=== PATIENT | female | born 1985 | race Caucasian/White ===

== ENCOUNTER 2019-11-12 13:59 | Outpatient (CLI) | payer MEDICAID, OTHER ==
[~2019-11-12 13:59] MED LIST: ACYC-113 PO; [UNRECOGNIZED DRUG - REMARK] PO
== END 2019-11-12 23:59 | disposition home or self-care (01) ==
LOC: STAR 13:59
PROVIDERS: ATTEND Otolaryngology
DX: Z02.9 Encounter for administrative examinations, unspecified (principal)

== ENCOUNTER → 2019-11-15 | Outpatient (CLI) | payer OTHER | END | disposition home or self-care (01) | LOC: LAB 10:02 | PROVIDERS: ATTEND Anesthesiology | DX: Z01.812 Encounter for preprocedural laboratory examination (principal); Z20.828 Contact with and (suspected) exposure to other viral communicable diseases | CPT/HCPCS: 36415; 87635 ==

== ENCOUNTER 2019-11-20 05:43 | Observation (INO) | payer OTHER ==
[~2019-11-20] VITALS: Ht 167.6 cm; Wt 108.2 kg
[2019-11-20] MEDS ORDERED: LACTATED RINGERS 1,000 ML IV SCH ×2 (06:20→12:00)
[2019-11-20] MEDS ORDERED: CHLORHEXIDINE 15 ML UDC MM ONE (06:30)
[2019-11-20 06:48] LABS: HCG UR SG 1.024 (1.003-1.030)
[2019-11-20] MEDS ORDERED: LIDOCAINE 1%-EPI 1:100K, 20ML ONE (07:11)
[2019-11-20] MEDS ORDERED: NEOSPORIN OINT, 15GM ONE (07:11)
[2019-11-20] MEDS ORDERED: OXYMETAZOLINE NASAL SPRAY 0.05%, 15ML ONE (07:11)
[2019-11-20] MEDS ORDERED: CEFAZOLIN 1,000 MG ONE (07:23)
[2019-11-20] MEDS ORDERED: ONDANSETRON 2MG/ML, 2ML ONE ×2 (07:23→09:49)
[2019-11-20] MEDS ORDERED: LABETALOL 5MG/ML, 20ML ONE ×2 (07:23→09:10)
[2019-11-20] MEDS ORDERED: DEXAMETHASONE 4 MG/ML, 5ML ONE (07:23)
[2019-11-20] MEDS ORDERED: ROCURONIUM 10 MG/ML,10ML ONE (07:23)
[2019-11-20] MEDS ORDERED: PROPOFOL 10 MG/ML, 20ML ONE (07:23)
[2019-11-20] MEDS ORDERED: MIDAZOLAM 1 MG/ML, 2ML ONE (07:24)
[2019-11-20] MEDS ORDERED: FENTANYL PF 100 MCG/2ML ONE ×4 (07:24→09:44)
[2019-11-20] MEDS ORDERED: PROMETHAZINE 25 MG/ML, 1ML IVPush PRN (08:00)
[2019-11-20] MEDS ORDERED: ACETAMINOPHEN 325 MG TABLET PO PRN (08:00)
[2019-11-20] MEDS ORDERED: hydrALAzine 20 MG/ML, 1ML IV PRN (08:00)
[2019-11-20] MEDS ORDERED: HYDROmorphone 1 MG/ML, 1ML INJ IVPush PRN (08:00)
[2019-11-20] MEDS ORDERED: OXYcodone 5 MG/5 ML ORAL.SOL UDC PO PRN (08:00)
[2019-11-20] MEDS ORDERED: ONDANSETRON 2MG/ML, 2ML IVPush PRN (08:00)
[2019-11-20] MEDS ORDERED: PROMETHAZINE 25 MG SUPP PR PRN (08:00)
[2019-11-20] MEDS ORDERED: SUGAMMADEX 200 MG/2 ML IVPush ONE (08:51)
[2019-11-20] MEDS: LABETALOL 5MG/ML, 20ML IV PRN ×3 (09:12→09:32)
[2019-11-20] MEDS: FENTANYL PF 100 MCG/2ML IV PRN ×6 (09:18→10:15)
[2019-11-20] MEDS ORDERED: hydrALAzine 20 MG/ML, 1ML ONE (09:27)
[2019-11-20] MEDS ORDERED: PROMETHAZINE 25 MG/ML, 1ML ONE (09:31)
[2019-11-20 10:54] VITALS: BP 101/67
[2019-11-20 11:54] VITALS: BP 97/64
[2019-11-20] MEDS ORDERED: FENTANYL PF 100 MCG/2ML IV PRN (12:00)
[2019-11-20] MEDS ORDERED: ONDANSETRON 2MG/ML, 2ML IV PRN (12:00)
[2019-11-20] MEDS ORDERED: LABETALOL 5MG/ML, 20ML IVPush PRN (12:30)
[2019-11-20 13:18] VITALS: BP 97/64
[2019-11-20] MEDS: OXYcodone/APAP 10/325MG TABLET PO PRN ×2 (14:24→20:59)
[2019-11-20 19:34] VITALS: BP 98/54
[2019-11-20 23:52] VITALS: BP 100/54
[2019-11-21 03:53] VITALS: BP 106/53
[2019-11-21] MEDS: OXYcodone/APAP 10/325MG TABLET PO PRN ×2 (03:59→09:25)
[2019-11-21 06:20] VITALS: BP 95/59
[2019-11-21] MEDS ORDERED: OXYC-307 PO (08:59)
[2019-11-21] MEDS ORDERED: AMOX1TAB64 PO (09:00)
[2019-11-21] MEDS ORDERED: LACTATED RINGERS 1,000 ML IV SCH (12:00)
== END 2019-11-21 09:55 | disposition home or self-care (01) ==
LOC: OUT 05:43 → 4NE 10:55 → ORIP 11:09 → OUT 12:04 → 4NE 12:58 → DCLOUNGE 11-21 09:43
PROVIDERS: ADMIT Otolaryngology; ATTEND Otolaryngology
DX: S02.2XXA Fracture of nasal bones, initial encounter for closed fracture (principal); T81.89XA Other complications of procedures, not elsewhere classified, initial encounter; F17.200 Nicotine dependence, unspecified, uncomplicated; X58.XXXA Exposure to other specified factors, initial encounter; Y93.89 Activity, other specified; Y92.89 Other specified places as the place of occurrence of the external cause
CPT/HCPCS: 30140; 30520; 81025; 88304; 96361; 96374; 96375; G0378; J0360; J0690; J1100; J2250; J2405; J2550; J2704; J3010; J3490; J7120